=== PATIENT | male | born 1970 | race Caucasian/White ===

== ENCOUNTER 2019-05-11 12:40 | Emergency (ER) | payer OTHER ==
--- OUTSIDE RECORDS SUMMARY | 2019-05-11 12:56 | XMS REPORT | Continuity of Care Document ---
:1970 External Reference #:[id number] Author Name Yony Vallejo MD (transmitted by agent of provider Ivonne Darnell) Address [address] [place] [address] Care Team Providers Name Role Phone Madeleine Dunn MD - Internal Care Team Information Sous Chef Kitchen Manager [facility] - Care Team Information Sous Chef Kitchen Manager [phone] Clinic/Center Problems Description No Information Available Social History Type Date Description Comments Sex Unknown Tobacco Use Start: Unknown End: Unknown Patient is a former smoker Smoking Status Reviewed: 04/18/19 Patient is a former smoker Allergies, Adverse Reactions, Alerts Description No Known Drug Allergies Medications Active Medications SIG Qnty Indications Ordering Provider Date Duloxetine HCL take one cap by 60caps M79.7 Yony Vallejo, 04/18/2019 30mg mouth daily for MD Thompson DR Part two weeks then increase to twice daily Prednisone Take three tabs 70tabs M06.4 Yony Vallejo, 03/27/2019 5mg Tablets by mouth daily MD for one week, Take two tabs by mouth daily for two weeks, take one tab by mouth daily for two weeks History Medications No Active Medications Unknown 03/26/2019 - 03/27/2019 Immunizations Description No Information Available Vital Signs Date Vital Result Comment 04/18/2019 7:53am Height 69.5 inches 5'9.50" Weight 189.00 lb Heart Rate 57 /min BP Systolic 130 mmHg BP Diastolic 75 mmHg Body Temperature 96.9 F Pain Level 4 O2 % BldC Oximetry 99 % BMI (Body Mass Index) 27.5 kg/m2 03/27/2019 2:36pm Height 69.5 inches 5'9.50" Weight 190.00 lb Heart Rate 64 /min BP Systolic 146 mmHg BP Diastolic 84 mmHg Body Temperature 96.9 F Pain Level 4 O2 % BldC Oximetry 98 % BMI (Body Mass Index) 27.7 kg/m2 Results Test Acquired Date Facility Test Result H/L Range Note Maria A Igg AB 04/08/2019 [facility] SS-A/Ro Antibody <0.2 U [address] [place] [address] [phone] SS-B/La Antibody <0.2 U 2 Sm (Ann) IgG Antibody <0.2 U 3 WATER JET OPERATOR Antibody, IgG <0.2 U 4 Scl-70 (Scleroderma) Antibody <0.2 U 5 Melisa-1 Antibody <0.2 U 6 Laboratory test 04/08/2019 [facility] Complement C3 120 mg/dL 75 - 175 7 finding [facility] [place] [address] [phone] Complement C4 22 mg/dL 14 - 40 8 Urinalysis Profile 04/08/2019 [facility] Urine Color Yellow [facility] [place] [address] [phone] Urine Appearance Clear Urine Specific [place] 1.013 Normal 1.010-1.030 Urine pH 6.0 Normal 5-9 Urine Urobilinogen Negative Negative Urine Ketones Negative Negative Urine Protein Negative Negative Urine Leukocytes Negative Negative Urine Blood Negative Negative Urine Nitrite Negative Negative Urine Bilirubin Negative Negative Urine Glucose Negative Negative Laboratory test 04/08/2019 [facility] Anti Double <12.3 [address] [place] [address] Stranded Dna IU/[place] [address] AB [phone] Laboratory test 03/27/2019 [facility] C Reactive < 1.00 Normal <8.01 finding [facility] Protein mg/[place] [address] [phone] Comp Metabolic 03/27/2019 [facility] Sodium 139 mmol/L Normal 135-1 Panel [address] [place] [address] [phone] Potassium 4.0 mmol/L Normal 3.5-5.0 Chloride 102 mmol/L Normal 101-111 Co2 Carbon Dioxide 30 mmol/L Normal 22-32 Anion Gap 7 mmol/L Normal 2-11 Glucose 103 mg/dL High 70-100 Blood Urea Nitrogen 22 mg/dL Normal 6-24 Creatinine 1.13 mg/dL Normal 0.67-1.17 BUN/Creatinine Ratio 19.5 Normal 8-20 Calcium 10.4 mg/dL High 8.6-10.3 Total Protein 7.4 g/dL Normal 6.4-8.9 Albumin 4.6 g/dL Normal 3.2-5.2 Globulin 2.8 g/dL Normal 2-4 Albumin/Globulin Ratio 1.6 Normal 1-3 Total Bilirubin 0.40 mg/dL Normal 0.2-1.0 Alkaline Phosphatase 84 U/L Normal 34-104 Alt 25 U/L Normal 7-52 Ast 31 U/L Normal 13-39 Egfr Non- 68.4 >60 Egfr 82.8 >60 10 Laboratory test 03/27/2019 [facility] Creatine 135 U/L Normal 10-[address] Kinase(CK) [place] [address] [phone] CBC Auto Diff 03/27/2019 [facility] White Blood 9.1 Normal 3.5 -10.[address] Count 10^3/[place] [address] [phone] Red Blood Count 5.47 10^6/uL Normal 4.18-5.48 Hemoglobin 17.6 g/dL Normal 14.0-18.0 Hematocrit 50 % Normal 42-52 Mean Corpuscular Volume 92 fL Normal 80-94 Mean Corpuscular Hemoglobin 32 pg High 27-31 Mean Corpuscular HGB Conc 35 g/dL Normal 31-36 Red Cell Distribution Width 13 % Normal 10-15 Platelet Count 236 10^3/uL Normal 150-450 Mean Platelet Volume 9.4 fL Normal 7.4-10.4 Abs Neutrophils 6.6 10^3/uL Normal 1.5-7.7 Abs Lymphocytes 1.8 10^3/uL Normal 1.0-4.8 Abs Monocytes 0.5 10^3/uL Normal 0-0.8 Abs Eosinophils 0.1 10^3/uL Normal 0-0.6 Abs Basophils 0.0 10^3/uL Normal 0-0.2 Abs Nucleated RBC 0.0 10^3/uL Granulocyte % 72.7 % Lymphocyte % 20.0 % Monocyte % 5.8 % Eosinophil % 1.0 % Basophil % 0.5 % Nucleated Red Blood Cells % 0.0 Nuclear AB 03/27/2019 [facility] Nuclear Ab Positive 1:160 Abnormal 11 (Nati) By [address] (Nati) by Ifa, [place] [address] IgG [phone] Nati Titer: 1:160 Nati Pattern: Homogeneous 12 Anca AB Ser If 03/27/2019 [facility] C-Anca Negative Negative [address] [place] [address] [phone] P-Anca Negative Negative 13 Laboratory test 03/27/2019 [facility] Rheumatoid < 10 IU/mL Normal <[address] [place] [address] [phone] Cyclic Citrullinated Pep Igg <15.6 U 14 Protein 03/27/2019 [facility] Total 7.7 g/dL 6.3 - Electrophoresis DRIVE Protein(Pep) 7.9 [place] [address] [phone] Albumin 3.8 g/dL 3.4-4.7 Alpha-1 Globulin 0.3 g/dL 0.1-0.3 Alpha-2 Globulin 1.1 g/dL Abnormal 0.6-1.0 Beta Globulin 1.2 g/dL 0.7-1.2 Gamma Globulin 1.3 g/dL 0.6-1.6 Albumin/Globulin Ratio 0.98 Impression See Comment 15 Laboratory test 03/27/2019 [facility] Erythrocyte Sed 4 mm/Hr Normal 0-[address] [place] [address] [phone] 1 REFERENCE VALUE <1.0 (Negative) 2 REFERENCE VALUE <1.0 (Negative) 3 REFERENCE VALUE <1.0 (Negative) 4 REFERENCE VALUE <1.0 (Negative) 5 REFERENCE VALUE <1.0 (Negative) 6 REFERENCE VALUE <1.0 (Negative) Test Performed by: [place] [address] Ocean Clam Boat Captain: Arsh Solitario M.D. Ph.D.; CLIA# [id number] 7 Test Performed by: [place] [address] [employer] Clam Boat Captain: Arsh Solitario M.D. Ph.D.; CLIA# [id number] 8 Test Performed by: [place] [address] [employer] Clam Boat Captain: Arsh Solitario M.D. Ph.D.; CLIA# [id number] 9 REFERENCE VALUE <30.0 (Negative) Test Performed by: [place] [address] [employer]am Boat Captain: Arsh Solitario M.D. Ph.D.; CLIA# [id number] 10 Because ethnic data is not always readily available, this report includes an eGFR for both -Americans and non- Americans. The National Kidney Disease Education Program (NKDEP) does not endorse the use of the MDRD equation for patients that are not between the ages of 18 and 70, are , have extremes of body size, muscle mass, or nutritional status, or are non- or non-. According to the National Kidney Foundation, irrespective of diagnosis, the stage of the disease is based on the level of kidney function: Stage Description GFR(mL/min/1.73 m(2)) 1 Kidney damage with normal or decreased GFR 90 2 Kidney damage with mild decrease in GFR 60-89 3 Moderate decrease in GFR 30-59 4 Severe decrease in GFR 15-29 5 Kidney failure <15 (or dialysis) 11 REFERENCE VALUE <1:80 (Negative) 12 Test Performed by: [place] [address] Ocean Clam Boat Captain: Arsh Solitario M.D. Ph.D.; CLIA# [id number] 13 Negative for cANCA and pANCA patterns by immunofluorescence. ADDITIONAL INFORMATION This test was developed and its performance characteristics determined by [facility] in a manner consistent with CLIA requirements. This test has not been cleared or approved by the U.S. Food and Drug Administration. Test Performed by: [facility] [place] [address] Ocean Clam Boat Captain: Arsh Solitario M.D. Ph.D.; CLIA# [id number] 14 REFERENCE VALUE <20.0 (Negative) Test Performed by: [facility] [place] [address] Ocean Clam Boat Captain: Arsh Solitario M.D. Ph.D.; CLIA# [id number] 15 RESULT: No apparent monoclonal protein on serum electrophoresis. Test Performed by: [place] [address] Ocean Clam Boat Captain: Arsh Solitario M.D. Ph.D.; CLIA# [id number] Procedures Description No Information Available Medical Devices Description No Information Available Encounters Type Date Location Provider Dx Diagnosis Office Visit 03/27/2019 Rheumatology Yony Vallejo, M06.4 Inflammatory 3:00p [facility] [place] polyarthropathy [facility] M79.659 Pain in unspecified thigh M25.512 Pain in left shoulder M62.81 Muscle weakness (generalized) R53.83 Other fatigue Assessments Date Code Description Provider 04/18/2019 R53.83 Other fatigue Yony Vallejo MD 04/18/2019 M79.7 Fibromyalgia Yony Vallejo MD 04/18/2019 R91.1 Solitary pulmonary nodule Yony Vallejo MD 03/27/2019 M06.4 Inflammatory polyarthropathy Yony Vallejo MD 03/27/2019 M79.659 Thigh pain Yony Vallejo MD 03/27/2019 M25.512 Shoulder joint pain Yony Vallejo MD 03/27/2019 M62.81 Muscle weakness Yony Vallejo MD 03/27/2019 R53.83 Fatigue Yony Vallejo MD Plan of Treatment Future Appointment(s):05/30/2019 3:00 pm - Yony Vallejo MD at [facility]04/18/2019 - Yony Vallejo, MDR53.83 Other fatigueReferral:[facility] Sleep Clinic, Sleep Disord,Diag/ClinicFollow up:f/u 6-8 xnjmhA82.7 FibromyalgiaNew Medication:Duloxetine HCL 30 mg - take one cap by mouth daily for two weeks then increase to twice txzpnX70.1 Solitary pulmonary noduleNew Xrays:CT Chest W/O, Ordered: 04/18/19 Functional Status Description No Information Available Mental Status Description No Information Available Referrals Refer to Reason for Referral Status Appt Date [facility] Sleep Clinic Concern for sleep apnea; fibromyalgia in history [address] [place] [address] [phone]
--- OUTSIDE RECORDS SUMMARY | 2019-05-11 12:56 | XMS REPORT | Continuity of Care Document ---
:1970 External Reference #:[id number] Author Name Yony Vallejo MD (transmitted by agent of provider Amada Martinez) Address [address] [place] [address] Care Team Providers Name Role Phone Madeleine Dunn MD - Internal Care Team Information Park Attendant Medicine Problems Description No Information Available Social History Type Date Description Comments Sex Unknown Tobacco Use Start: Unknown End: Unknown Patient is a former smoker Smoking Status Reviewed: 03/27/19 Patient is a former smoker Allergies, Adverse Reactions, Alerts Description No Known Drug Allergies Medications Active Medications SIG Qnty Indications Ordering Provider Date Prednisone Take three tabs 70tabs M06.4 Yony Vallejo MD 03/27/2019 5mg Tablets by mouth daily for one week, Take two tabs by mouth daily for two weeks, take one tab by mouth daily for two weeks History Medications No Active Medications Unknown 03/26/2019 - 03/27/2019 Immunizations Description No Information Available Vital Signs Date Vital Result Comment 03/27/2019 2:36pm Height 69.5 inches 5'9.50" Weight 190.00 lb Heart Rate 64 /min BP Systolic 146 mmHg BP Diastolic 84 mmHg Body Temperature 96.9 F Pain Level 4 O2 % BldC Oximetry 98 % BMI (Body Mass Index) 27.7 kg/m2 Results Description No Information Available Procedures Description No Information Available Medical Devices Description No Information Available Encounters Description No Information Available Assessments Date Code Description Provider 03/27/2019 M06.4 Inflammatory polyarthropathy Yony Vallejo MD 03/27/2019 M79.659 Thigh pain Yony Vallejo MD 03/27/2019 M25.512 Shoulder joint pain Yony Vallejo MD 03/27/2019 M62.81 Muscle weakness Yony Vallejo MD 03/27/2019 R53.83 Fatigue Yony Vallejo MD Plan of Treatment Future Appointment(s):05/12/2019 3:00 pm - Yony Vallejo MD at [facility]03/27/2019 - Yony Vallejo, MDM06.4 Inflammatory polyarthropathyNew Medication:Prednisone 5 mg - Take three tabs by mouth daily for one week, Take two tabs by mouth daily for two weeks, take one tab by mouth daily for two weeksComments:Concern for polymyalgia RheumaticaFollow up:f/u 4-6 ojaliO27.659 Thigh painM25.512 Shoulder joint painM62.81 Muscle iwhcqrrkK06.83 Fatigue Functional Status Description No Information Available Mental Status Description No Information Available Referrals Description No Information Available
--- OUTSIDE RECORDS SUMMARY | 2019-05-11 12:56 | XMS REPORT | Continuity of Care Document ---
:1970 External Reference #:[id number] Author Name Corina Lui MD (transmitted by agent of provider India Gavin) Address [address], [address] [place] [address] Care Team Providers Name Role Phone Madeleine Dunn MD - Internal Care Team Information Registered Veterinary Technician [phone] [facility] - Care Team Information Registered Veterinary Technician [phone] Clinic/Center Problems Description No Information Available Social History Type Date Description Comments Sex Unknown Tobacco Use Start: Unknown End: Patient is a former smoked 1 pack a day Unknown smoker on & off 10 years quit in 1996 Recreational Drug Use Denies Drug Use Smoking Status Reviewed: 04/24/19 Patient is a former smoked 1 pack a day smoker on & off 10 years quit in 1996 Exercise Type/Frequency Exercises regularly Allergies, Adverse Reactions, Alerts Description No Known Drug Allergies Medications Active Medications SIG Qnty Indications Ordering Provider Date Duloxetine HCL take one cap by 60capjermaine M79.7 Yony Vallejo, 04/18/2019 30mg mouth daily for MD Donna Bolden two weeks then increase to twice daily CBC prn Unknown Melatonin 1 by mouth @ at Unknown 3mg Capsules bedtime prn Advil as needed Unknown 200mg Tablets History Medications Prednisone Take three tabs 70tabs M06.4 Yony Vallejo, 03/27/2019 - 5mg Tablets by mouth daily 04/24/2019 for one week, Take two tabs by mouth daily for two weeks, take one tab by mouth daily for two weeks No Active Medications Unknown 03/26/2019 - 03/27/2019 Immunizations Description No Information Available Vital Signs Date Vital Result Comment 04/24/2019 10:25am Height 69.5 inches 5'9.50" Weight 187.00 lb Heart Rate 62 /min BP Systolic Sitting 120 mmHg BP Diastolic Sitting 78 mmHg O2 % BldC Oximetry 98 % BMI (Body Mass Index) 27.2 kg/m2 Neck Circumference in inches 15 04/18/2019 7:53am Height 69.5 inches 5'9.50" Weight 189.00 lb Heart Rate 57 /min BP Systolic 130 mmHg BP Diastolic 75 mmHg Body Temperature 96.9 F Pain Level 4 O2 % BldC Oximetry 99 % BMI (Body Mass Index) 27.5 kg/m2 Results Test Acquired Date Facility Test Result H/L Range Note Maria A Igg AB 04/08/2019 [facility] SS-A/Ro Antibody <0.2 U 1 [place] [address] [phone] SS-B/La Antibody <0.2 U 2 Sm (Ann) IgG Antibody <0.2 U 3 PARAOPTOMETRIC Antibody, IgG <0.2 U 4 Scl-70 (Scleroderma) Antibody <0.2 U 5 Melisa-1 Antibody <0.2 U 6 Laboratory test 04/08/2019 [facility] Complement C3 120 mg/dL 75 - 175 [address] [place] [address] [phone] Complement C4 22 mg/dL 14 - 40 8 Urinalysis Profile 04/08/2019 [facility] Urine Color Yellow [address] [place] [address] [phone] Urine Appearance Clear Urine Specific [place] 1.013 Normal 1.010-1.030 Urine pH 6.0 Normal 5-9 Urine Urobilinogen Negative Negative Urine Ketones Negative Negative Urine Protein Negative Negative Urine Leukocytes Negative Negative Urine Blood Negative Negative Urine Nitrite Negative Negative Urine Bilirubin Negative Negative Urine Glucose Negative Negative Laboratory test 04/08/2019 [facility] Anti Double <12.3 [address] [place] [address] Stranded Dna IU/[place] [address] AB [phone] Laboratory test 03/27/2019 [facility] C Reactive < 1.00 Normal <8.01 finding [facility] Protein mg/[place] [address] [phone] Comp Metabolic 03/27/2019 [facility] Sodium 139 mmol/L Normal 135-1 Panel [facility] [address] [place] [address] [phone] Potassium 4.0 mmol/L Normal 3.5-5.0 Chloride 102 [...] Egfr 82.8 >60 10 Laboratory test 03/27/2019 [facility] Creatine 135 U/L Normal 10-[address] Kinase(CK) [place] [address] [phone] CBC Auto Diff 03/27/2019 [facility] White Blood 9.1 Normal 3.5 -10.[address] Count 10^3/[place] [address] [phone] Red Blood Count 5.47 10^6/uL Normal 4.18-5.48 [...] Blood Cells % 0.0 Nuclear AB 03/27/2019 [facility] Nuclear Ab Positive 1:160 Abnormal 11 (Nati) By [address] (Nati) by Ifa, [place] [address] IgG [phone] Nati Titer: 1:160 Nati Pattern: Homogeneous 12 Anca AB Ser If 03/27/2019 [facility] C-Anca Negative Negative [address] [place] [address] [phone] P-Anca Negative Negative 13 Laboratory test 03/27/2019 [facility] Rheumatoid < 10 IU/mL Normal <[address] [place] [address] [phone] Cyclic Citrullinated Pep Igg <15.6 U 14 Protein 03/27/2019 [facility] Total 7.7 g/dL 6.3 - Electrophoresis [address] Protein(Pep) 7.9 [place] [address] [phone] Albumin 3.8 g/dL 3.4-4.7 Alpha-1 Globulin 0.3 g/dL 0.1-0.3 Alpha-2 Globulin 1.1 g/dL Abnormal 0.6-1.0 Beta Globulin 1.2 g/dL 0.7-1.2 Gamma Globulin 1.3 g/dL 0.6-1.6 Albumin/Globulin Ratio 0.98 Impression See Comment 15 Laboratory test 03/27/2019 [facility] Erythrocyte Sed 4 mm/Hr Normal 0-[address] [place] [address] [phone] 1 REFERENCE VALUE <1.0 (Negative) 2 REFERENCE VALUE <1.0 (Negative) 3 REFERENCE VALUE <1.0 (Negative) 4 REFERENCE VALUE <1.0 (Negative) 5 REFERENCE VALUE <1.0 (Negative) 6 REFERENCE VALUE <1.0 (Negative) Test Performed by: [place] [address] Executive Associate: Arsh Solitario M.D. Ph.D.; CLIA# [id number] 7 Test Performed by: [place] [address] Executive Associate: Asrh Solitario M.D. Ph.D.; CLIA# [id number] 8 Test Performed by: [place] [address] Executive Associate: Arsh Solitario M.D. Ph.D.; CLIA# [id number] 9 REFERENCE VALUE <30.0 (Negative) Test Performed by: [place] [address] Executive Associate: Arsh Solitario M.D. Ph.D.; CLIA# [id number] 10 Because ethnic data is not always [...] VALUE <1:80 (Negative) 12 Test Performed by: [place] [address] Executive Associate: Arsh Solitario M.D. Ph.D.; CLIA# [id number] 13 Negative for cANCA and pANCA patterns by immunofluorescence. ADDITIONAL INFORMATION This test was developed and its performance characteristics determined by [facility] in a manner consistent with CLIA requirements. This test has not been cleared or approved by the U.S. Food and Drug Administration. Test Performed by: [place] [address] Executive Associate: Arsh Solitario M.D. Ph.D.; CLIA# [id number] 14 REFERENCE VALUE <20.0 (Negative) Test Performed by: [place] [address] Executive Associate: Arsh Solitario M.D. Ph.D.; CLIA# [id number] 15 RESULT: No apparent monoclonal protein on serum electrophoresis. Test Performed by: [facility] [address] [place] [address] Executive Associate: Arsh Solitario M.D. Ph.D.; CLIA# [id number] Procedures Description No Information Available Medical Devices Description No Information Available Encounters Type Date Location Provider Dx Diagnosis Office Visit 04/24/2019 Pulmonology And Corina Lui, G47.9 Sleep disorder, 11:00a Sleep Services Of unspecified [facility] R53.83 Other fatigue Office Visit 03/27/2019 Rheumatology Yony M06.4 Inflammatory 3:00p Services Of Sruthi Vallejo MD polyarthropathy [facility] M79.659 Pain in unspecified thigh M25.512 Pain in left shoulder M62.81 Muscle weakness (generalized) R53.83 Other fatigue Assessments Date Code Description Provider 04/24/2019 G47.9 Sleep disorder, unspecified Corina Lui MD 04/24/2019 R53.83 Other fatigue Corina Lui MD 04/18/2019 R53.83 Other fatigue Yony Vallejo MD 04/18/2019 M79.7 Fibromyalgia Yony Vallejo MD 04/18/2019 R91.1 Solitary pulmonary nodule Yony Vallejo MD 03/27/2019 M06.4 Inflammatory polyarthropathy Yony Vallejo MD 03/27/2019 M79.659 Thigh pain Yony Vallejo MD 03/27/2019 M25.512 Shoulder joint pain Yony Vallejo MD 03/27/2019 M62.81 Muscle weakness Yony Vallejo MD 03/27/2019 R53.83 Fatigue Yony Vallejo MD Plan of Treatment Future Appointment(s):05/23/2019 2:00 pm - Kathe Banks NP at Pulmonology And [facility]05/30/2019 3:00 pm - Yony Vallejo MD at [facility]04/24/2019 - Corina Lui MDG47.9 Sleep disorder, unspecifiedNew Orders:Home Sleep Testing, Scheduled: Follow up:1 weekR53.83 Other fatigue Functional Status Description No Information Available Mental Status Description No Information Available Referrals Refer to Reason for Referral Status Appt Date [facility] Sleep [facility] Concern for sleep apnea; fibromyalgia in history Sent /0000 [address] [place] [address] [phone]
[2019-05-11] MEDS ORDERED: Tetan/Diph/Pertus SYR(Tdap)* 0.5 ML SYR(BOOSTRIX) use SYR contains LATEX IM ONE (12:58)
[2019-05-11] MEDS ORDERED: DOXYcycline CAP(*) 100 MG PO ONE (12:58)
--- NOTE | 2019-05-11 12:59 | ED ---
Bite Injury/Animal - HPI Summary HPI Summary: 49-year-old male with no significant past medical history presents to the emergency department today complaining of a Bite to his right hand 3 days ago. Patient states she was bit by a stray cat he has been looking after him. He endorses 3 out of 10 pain to the right first metatarsal phalangeal joint. Patient has full range of motion and sensation in the upper shoulders bilaterally. There is no evidence of active infection. Patient denies fever, chest and abdominal pain, pain with urination, rash. Patient states the cat bit him is asymptomatic for rabies. Patient is penicillin allergic. Last tetanus shot was approximately 7 years ago. Family and social history noncontributory. - History of Current Complaint Chief Complaint: EDAnimalBite Stated Complaint: CAT BITE Time Seen by Provider: 05/11/19 12:50 Hx Obtained From: Patient Onset of Injury: Happened days ago Type of Bite: Animal Hx of Bite: Provoked by: - scared Has Animal Been Immunized?: No Severity Initially: Mild Severity Currently: Mild Pain Intensity: 3 Pain Scale Used: 0-10 Numeric Character: Puncture Associated Signs And Symptoms: Positive: Erythema. Negative: Fever, Swelling, Lymphadenopathy, Numbness/Tingling, Limited ROM Animal Available for Observation: Yes Animal Control Notified: No - Allergies/Home Medications Allergies/Adverse Reactions: Allergies Allergy/AdvReac Type Severity Reaction Status Date / Time amoxicillin Allergy Rash Verified 05/11/19 12:49 PMH/Surg Hx/FS Hx/Imm Hx Cardiovascular History: Denies: Hx Pacemaker/ICD Musculoskeletal History: Denies: Hx Rheumatoid Arthritis, Hx Osteoporosis Sensory History: Denies: Hx Hearing Aid Psychiatric History: Denies: Hx Panic Disorder Infectious Disease History: No Infectious Disease History: Denies: Traveled Outside the [place] in Last 30 Days Review of Systems Constitutional: Negative Eyes: Negative ENT: Negative Cardiovascular: Negative Respiratory: Negative Gastrointestinal: Negative Genitourinary: Negative Positive: Myalgia Skin: Negative Neurological: Negative Psychological: Normal All Other Systems Reviewed And Are Negative: Yes Physical Exam - Summary Physical Exam Summary: Inspection of the right hand reveals multiple 1-2 cm superficial abrasions surrounding the first second and third metatarsal phalangeal joint. There is a small bite wound noted lateral to the second metatarsal phalangeal joint. No evidence of drainage, edema, ecchymosis, significant amount of erythema. Patient is full range of motion and is neurvascularly intact Triage Information Reviewed: Yes Vital Signs On Initial Exam: Initial Vitals Temp Pulse Resp BP Pulse Ox 98.0 F 68 18 139/94 98 05/11/19 12:45 05/11/19 12:45 05/11/19 12:45 05/11/19 12:45 05/11/19 12:45 Vital Signs Reviewed: Yes Appearance: Positive: Well-Appearing, No Pain Distress, Well-Nourished Skin: Positive: Warm, Skin Color Reflects Adequate Perfusion Eyes: Positive: EOMI, GAVINO ENT: Positive: Hearing grossly normal Respiratory/Lung Sounds: Positive: Clear to Auscultation, Breath Sounds Present Cardiovascular: Positive: RRR, S1, S2 Abdomen Description: Positive: Nontender, Soft Bowel Sounds: Positive: Present Musculoskeletal: Positive: Strength/ROM Intact Neurological: Positive: Sensory/Motor Intact, Alert, Oriented to Person Place, Time, Normal Gait, Speech Normal Psychiatric: Positive: Normal AVPU Assessment: Alert Procedures - Sedation Patient Received Moderate/Deep Sedation with Procedure: No Diagnostics - Vital Signs Vital Signs Temp Pulse Resp BP Pulse Ox 05/11/19 12:45 98.0 F 68 18 139/94 98 - Laboratory Lab Statement: Any lab studies that have been ordered have been reviewed, and results considered in the medical decision making process. Bite Injury Course/Dx - Course Course Of Treatment: Patient was evaluated in the emergency department today for a cat bite right hand. Vitals noted. Patient was given updated tetanus immunization as well as 1 dose of doxycycline in the emergency department for Due to his penicillin allergy. Patient was given 7 day supply of doxycycline twice a day for catbite. There appeared to be no signs of active infection or indication for rabies immunoglobulin. Patient agreed to monitor his pet for signs and symptoms of rabies and to follow-up with his primary care physician in 5 days. - Diagnoses Differential Diagnosis/HQI/PQRI: Positive: Laceration, Puncture, Rabies Exposure , Superficial Infection, Deep Space Infection Provider Diagnosis: Cat bite of hand Discharge ED - Sign-Out/Discharge Documenting (check all that apply): Patient Departure - Discharge Plan Condition: Stable Disposition: HOME Prescriptions: DOXYcycline CAP(*) [DOXYcycline 100MG CAP(*)] 100 mg PO BID 7 Days #14 cap Patient Education Materials: Animal Bite (ED) Referrals: Madeleine Yost MD [Primary Care Provider] - 5 Days Additional Instructions: You were seen in the emergency department today for a cat bite. You were given updated tetanus immunization as well as 1 dose of doxycycline in the emergency department. I have sent a prescription for doxycycline 100 mg to be taken every 12 hours for 7 days to your pharmacy. Please finish this course of antibiotics even if you begin to feel better. Please follow-up with your primary care physician 5 days for further evaluation and management. Please return to the emergency department immediately if develop any new or worsening symptoms. Continue to monitor your pet for signs and symptoms of rabies. - Billing Disposition and Condition Condition: STABLE Disposition: Home - Attestation Statements Provider Attestation: I have seen the patient with the SHIRA and agree with the plan and documentation below except as noted: is a 50-year-old male bit by a stray cat. Patient has cat, CHAPO to follow-up. Given doxycycline given history amoxicillin allergy. Paige Calixto MD
[2019-05-11 13:47] VITALS: BP 120/68
== END 2019-05-11 13:46 | disposition home or self-care (01) ==
LOC: ED 12:40
DX: S61.451A Open bite of right hand, initial encounter (principal); Z23 Encounter for immunization; W55.01XA Bitten by cat, initial encounter; Y92.9 Unspecified place or not applicable; Z88.0 Allergy status to penicillin
CPT/HCPCS: 90471; 90715; 99282; A9270-GY